=== PATIENT | female | born 1995 | race American Indian/Alaskan Native ===

== ENCOUNTER 2020-12-05 18:25 | Emergency (ER) | payer SELFPAY ==
[2020-12-05 18:41] VITALS: BP 121/79
--- NOTE | 2020-12-05 19:54 | Emergency Department Report ---
ED ENT HPI - General Chief complaint: Dental/Oral Stated complaint: TONGUE RIPPED Time Seen by Provider: 12/05/20 19:13 Source: patient Mode of arrival: Ambulatory Limitations: No Limitations - History of Present Illness Initial comments: 25-year-old female who has tongue ring on her frenulum lingula a reports that got caught on her braces resulting in tearing of the area so she presented to the [facility] department to seek further evaluations and treatment options. -: Gradual Quality: dull Consistency: constant Improves with: none Worsens with: none - Related Data Previous Rx's Medication Instructions Recorded Last Taken Type Chlorhexidine Mouthwash [Peridex] 15 ml MM BID #473 bottle 12/05/20 Unknown Rx Allergies Allergy/AdvReac Type Severity Reaction Status Date / Time No Known Allergies Allergy Unverified 12/05/20 19:13 ED Dental HPI - General Chief complaint: Dental/Oral Stated complaint: TONGUE RIPPED Time Seen by Provider: 12/05/20 19:13 Source: patient Mode of arrival: Ambulatory Limitations: No Limitations - Related Data Previous Rx's Medication Instructions Recorded Last Taken Type Chlorhexidine Mouthwash [Peridex] 15 ml MM BID #473 bottle 12/05/20 Unknown Rx Allergies Allergy/AdvReac Type Severity Reaction Status Date / Time No Known Allergies Allergy Unverified 12/05/20 19:13 ED Review of Systems ROS: Stated complaint: TONGUE RIPPED Other details as noted in HPI Comment: All other systems reviewed and negative ED Past Medical Hx - Past Medical History Previous Medical History?: No - Surgical History Past Surgical History?: No - Medications Home Medications: Home Medications Medication Instructions Recorded Confirmed Last Taken Type Chlorhexidine Mouthwash [Peridex] 15 ml MM BID #473 bottle 12/05/20 Unknown Rx ED Physical Exam - General Limitations: No Limitations General appearance: alert, in no apparent distress - Head Head exam: Present: atraumatic, normocephalic - Eye Eye exam: Present: normal appearance - ENT ENT exam: Present: mucous membranes moist, other (Has tear to the frenulum but neurologically still intact. No active bleeding. Normal speech tongue is normal or range of motion minimal tenderness is noted.) - Neck Neck exam: Present: normal inspection - Respiratory Respiratory exam: Present: normal lung sounds bilaterally. Absent: respiratory distress - Cardiovascular Cardiovascular Exam: Present: regular rate, normal rhythm. Absent: systolic murmur, diastolic murmur, rubs, gallop - GI/Abdominal GI/Abdominal exam: Present: soft, normal bowel sounds - Extremities Exam Extremities exam: Present: normal inspection - Back Exam Back exam: Present: normal inspection - Neurological Exam Neurological exam: Present: alert, oriented X3 - Psychiatric Psychiatric exam: Present: normal affect, normal mood - Skin Skin exam: Present: warm, dry, intact, normal color. Absent: rash ED Course Vital Signs 12/05/20 18:40 Temperature 97.8 F Pulse Rate 95 H Respiratory 18 Rate Blood Pressure 121/79 [Right] O2 Sat by Pulse 100 Oximetry ED Medical Decision Making - Medical Decision Making 25-year-old female status post tattoo frenulum lingula hemostasis is achieved to heal by secondary intention Critical care attestation.: If time is entered above; I have spent that time in minutes in the direct care of this critically ill patient, excluding procedure time. ED Disposition Clinical Impression: Tear of frenulum of upper lip Disposition: HOME / SELF CARE / HOMELESS Is pt being admited?: No Does the pt Need Aspirin: No Condition: Stable Instructions: Tongue Laceration, [id number], Mouth Laceration Prescriptions: Chlorhexidine Mouthwash [Peridex] 15 ml MM BID #473 bottle Referrals: [facility] [Provider Group] - 3-5 Days
== END 2020-12-05 21:27 | disposition home or self-care (01) ==
LOC: ED 18:25
DX: S01.512A Laceration without foreign body of oral cavity, initial encounter (principal); X58.XXXA Exposure to other specified factors, initial encounter; Y93.89 Activity, other specified; Y92.89 Other specified places as the place of occurrence of the external cause; Y99.8 Other external cause status
CPT/HCPCS: 99281